=== PATIENT | male | born 1955 | race Caucasian/White ===

== ENCOUNTER 2017-09-15 08:44 | Emergency (ER) | payer SELFPAY ==
[2017-09-15] MEDS ORDERED: HYDROCODONE/APAP 7.5/325MG TABLET PO ONE (08:55)
[2017-09-15] MEDS ORDERED: DIAZEPAM 5 MG TABLET PO ONE (08:55)
--- NOTE | 2017-09-15 08:58 | Emergency Department Record ---
History of Present Illness - General Chief Complaint: Back Pain/Injury Stated Complaint: BACK INJURY Time Seen by Provider: 09/15/17 08:53 Source: Patient, Family Mode of Arrival: Ambulatory Limitations: No limitations - History of Present Illness Initial Comments: 61 yo male presents with back pain. He was getting out of his car this week and and twisted feeling pain. The pain was mild but continued into the weekend. Today he was turning and felt a pop in his low back worsening the pain. No weakness, numbness, tingling or radiation to the legs. No hematuria, changes in bowel or bladder function, no abdominal pain. He has pain with changing for sitting to standing and then back to sitting again. No recent illness. No history of back surgery. MD Complaint: Back pain, Back injury -: Days(s) Place: Home Radiation: None (right lower lumbar) Severity: Severe Quality: Aching, Sharp Consistency: Constant Improves With: Other (improves with standing, not moving) Worsens With: Movement, Sitting upright, Walking Context: Turning/twisting Associated Symptoms: Denies other symptoms - Related Data Previous Rx's Medication Instructions Recorded Diazepam [Valium] 5 mg PO Q8H #15 tab 09/15/17 Hydrocodone/Acetaminophen [Matthews 1 tab PO Q8H PRN #15 tab 09/15/17 5mg/325mg] Allergies Allergy/AdvReac Type Severity Reaction Status Date / Time codeine Allergy ANAPHYLAXIS Verified 09/15/17 08:57 Review of Systems Constitutional: Denies: Chills, Fever, Malaise, Night sweats, Weakness Eyes: Denies: Eye discharge ENT: Denies: Congestion, Throat pain Respiratory: Denies: Cough, Dyspnea, Hemoptysis Cardiovascular: Denies: Chest pain, Dyspnea on exertion, Edema, Palpitations, Syncope Endocrine: Denies: Fatigue Gastrointestinal: Denies: Abdominal pain, Diarrhea, Nausea, Vomiting Genitourinary: Denies: Dysuria, Frequency, Hematuria, Incontinence, Retention, Testicular mass, Urgency Musculoskeletal: Reports: Back pain, Myalgia Skin: Denies: Bruising, Change in color, Rash Neurological: Denies: Abnormal gait, Headache, Numbness, Seizure, Tingling, Tremors, Weakness Psychiatric: Denies: Anxiety Hematological/Lymphatic: Denies: Blood Clots, Easy bleeding, Easy bruising, Swollen glands Physical Exam - General General Appearance: Alert, Oriented x3, Cooperative, No acute distress Limitations: No limitations - Head Head exam: Atraumatic, Normocephalic, Normal inspection - Eye Eye exam: Normal appearance, PERRL. negative: Conjunctival injection, Scleral icterus - ENT ENT exam: Normal exam Ear exam: Normal external inspection Nasal Exam: Normal inspection Mouth exam: Normal external inspection - Neck Neck exam: Normal inspection, Full ROM. negative: Tenderness - Respiratory Respiratory exam: Normal lung sounds bilaterally. negative: Respiratory distress - Cardiovascular Cardiovascular Exam: Regular rate, Normal rhythm, Normal heart sounds - GI/Abdominal GI/Abdominal exam: Soft. negative: Distended, Guarding, Hernia, Pulsatile mass , Rebound, Rigid, Tenderness - Rectal Rectal exam: Deferred - exam: Deferred - Extremities Extremities exam: Normal inspection, Full ROM, Normal capillary refill. negative: Calf tenderness, Joint swelling, Pedal edema, Tenderness Image of Full Body: 1 - tender to palpation Right lower lumber, no rash, no mass, - Back Back exam: Reports: Muscle spasm, Paraspinal tenderness, Tenderness, Vertebral tenderness. Denies: Full ROM (muscle spasm) - Neurological Neurological exam: Alert, Normal gait, Oriented X3. negative: Altered, Motor sensory deficit, Reflexes normal - Psychiatric Psychiatric exam: Normal affect, Normal mood. negative: Agitated, Anxious - Skin Skin exam: Dry, Intact, Normal color, Warm Course - Reevaluation(s) Reevaluation #1: The vitals reviewed. No acute changes The examination is consistent with musculo-skeletal with muscle spasm and very reproducible 09/15/17 08:59 09/15/17 09:48 XR minimal anterior listhesis of L4 on 5 otherwise no acute The patient is feeling some relief We discussed home care, prescriptions, follow up and reasons to return to the ED 09/15/17 09:52 The patient is able to provide a UA at this time. This will be checked for blood or infection. No history of infection, no dysuria, no hematuria, no history or renal stones. He only has pain with changes in position, twisting or moving. He is relieved when still. No fever, no abdominal pain, no tachycardia, no hypertension, no radicular symptoms, no abdominal tenderness. The onset was specific to twisting getting out of his car. 09/15/17 10:06 The UA is negative. No blood or abnormal findings. Disposition Disposition: Discharge Clinical Impression: Lumbar spine strain Qualifiers: Encounter type: initial encounter Qualified Code(s): S39.012A - Strain of muscle, fascia and tendon of lower back, initial encounter Disposition: Home, Self-Care Condition: (1) Good Instructions: Low Back Strain (ED) Additional Instructions: Call your doctor first of the week for a recheck and review of this ED visit Return if worse, no pain, or any new symptoms or concerns Prescriptions: Diazepam [Valium] 5 mg PO Q8H #15 tab Hydrocodone/Acetaminophen [Matthews 5mg/325mg] 1 tab PO Q8H PRN #15 tab PRN Reason: Pain - General Forms: Patient Portal Access Time of Disposition: 09:49 Quality - Quality Measures Quality Measures: N/A - Blood Pressure Screening Does Patient Have Any of the Following: No Blood Pressure Classification: Pre-Hypertensive BP Reading Systolic Measurement: 126 Diastolic Measurement: 79 Screening for High Blood Pressure: < Pre-Hypertensive BP, F/U Documented > [ [id number]] Pre-Hypertensive Follow-up Interventions: Referral to alternative/primary care provider.
[2017-09-15 10:02] LABS: URINE APPEARANCE CLEAR; URINE BILIRUBIN NEGATIVE (NEGATIVE); URINE BLOOD NEGATIVE (NEGATIVE); URINE COLOR YELLOW; URINE GLUCOSE (UA) NEGATIVE (NEGATIVE); URINE KETONE NEGATIVE (NEGATIVE); URINE LEUKOCYTE ESTERASE NEGATIVE (NEGATIVE); URINE NITRITE NEGATIVE (NEGATIVE); URINE PROTEIN NEGATIVE (NEGATIVE); URINE UROBILINOGEN 0.2 E.U./dL (0.20 - 1.00)
--- NOTE | 2017-09-16 09:23 | RADIOLOGY REPORT ---
EXAM: LUMBAR SPINE HISTORY: BACK PAIN. TECHNIQUE: AP, lateral and oblique views of the lumbar spine were performed. FINDINGS: There is minimal anterolisthesis of L5 in respect to S1. There are likely pars defects at L5. No evidence of fracture. The transverse processes are normal. The sacroiliac joints appear normal. IMPRESSION: MINIMAL ANTEROLISTHESIS OF L5 IN RESPECT TO S1. THERE ARE LIKELY PARS DEFECT AT L5. THE REMAINDER OF THE EXAMINATION IS UNREMARKABLE. JOB NUMBER: [id number] [facility]
== END 2017-09-15 10:13 | disposition home or self-care (01) ==
LOC: ER 08:44
DX: S39.012A Strain of muscle, fascia and tendon of lower back, initial encounter (principal); X50.1XXA Overexertion from prolonged static or awkward postures, initial encounter; Y92.009 Unspecified place in unspecified non-institutional (private) residence as the place of occurrence of the external cause
CPT/HCPCS: 99283; 99284; 81003; 72110; J3490